=== PATIENT | male | born 1970 | race Caucasian/White ===

== ENCOUNTER 2021-04-15 11:26 | Emergency (ER) | payer MEDICAID ==
[2021-04-15 11:49] VITALS: BP 149/90
--- NOTE | 2021-04-15 12:10 | ED Physician Documentation ---
History of Present Illness - Stated complaint Stated Complaint: HEAD PX/NAUSEA/FATIGUE - Chief complaint Chief Complaint: General - Additonal information Additional information: 50-year-old male presents emergency department with concerns that he may have COVID-19. He received his first immunization on March 29. He travels extensively for work he was in [place] last week. When he returned a few days ago he learned that his has been sick with upper respiratory symptoms for the better part of a week. Local clinics and pharmacies are out of rapid test therefore he presents to the emergency department. Subjective fevers and chills. Some headache. Vomiting and diarrhea x1 mild congestion and cough. Denies chest pain labored breathing or shortness of air. Non-smoker. Review of Systems Constitutional: reports: Myalgias, Fatigue. denies: Fever Eyes: reports: Reviewed and negative Ears: reports: Reviewed and negative Nose: reports: Rhinorrhea / runny nose, Congestion Throat: reports: Reviewed and negative Cardiac: reports: Reviewed and negative Respiratory: reports: Cough. denies: Dyspnea GI: reports: Vomiting, Diarrhea : reports: Reviewed and negative Skin: reports: Reviewed and negative Musculoskeletal: reports: Reviewed and negative Neurologic: reports: Reviewed and negative Psychiatric: reports: Reviewed and negative PD PAST MEDICAL HISTORY - Past Surgical History Past Surgical History: No - Present Medications Home Medications: Ambulatory Orders Medication Instructions Recorded Confirmed Hydrocodone/Acetaminophen 1 - 2 each PO Q6H PRN #15 tablet 10/31/14 [Hydrocodon-Acetaminophen 5-325] Ofloxacin 0.3% Ophth Drops 1 drops RIGHTEYE QID 7 Days btl 10/31/14 [Ocuflox 0.3% Ophth Drops] - Allergies Allergies/Adverse Reactions: Allergies Allergy/AdvReac Type Severity Reaction Status Date / Time No Known Drug Allergies Allergy Verified 04/15/21 11:49 - Social History Does the pt smoke?: No Smoking Status: Former smoker Does the pt drink ETOH?: Yes Does the pt have substance abuse?: No - Immunizations Immunizations are current?: Yes Immunizations: TDAP current <10years - POLST Patient has POLST: No PD ED PE EXPANDED - General General: Alert, No acute distress - Neck Neck: Supple w/out meningeal sx. No: Adenopathy - Cardiac Cardiac: Regular Rate, Radial strong equal, Pedal strong equal. No: Murmur Present - Respiratory Respiratory: Clear to ausultation lily. No: Distress, Labored - Abdomen Abdomen: Normal Bowel sounds. No: Tender to palpation - Neuro Neuro: Alert and Oriented X 3, CNII-XII intact Results - Vitals Vitals: Vital Signs - 24 hr 04/15/21 11:46 Temperature 36.4 C L Heart Rate 64 Respiratory 16 Rate Blood Pressure 149/90 H O2 Saturation 97 Oxygen O2 Source Room air PD MEDICAL DECISION MAKING - ED course Complexity details: d/w patient ED course: 50-year-old male presents with 3 to 4 days of URI symptoms including cough, mild congestion headache and myalgias. He has received only 1 dose of COVID-19 vaccine in late March. Travels extensively for work. His has been sick at home for the last week with URI symptoms. COVID-19 screening test is pending. This gentleman otherwise looks and appears clinically well with a benign cardiopulmonary exam. Emergent return precautions discussed. Departure - Departure Disposition: 01 Home, Self Care Clinical Impression: Encounter for screening for COVID-19 Upper respiratory infection Qualifiers: URI type: unspecified URI Qualified Code(s): J06.9 - Acute upper respiratory infection, unspecified Condition: Stable Record reviewed to determine appropriate education?: Yes Comments: You have a Covid test pending. You need to self quarantine until the result is done and negative. Do not leave your house. Do not get near anybody. The results should be done in 48 to 72 hours. We will call with a positive result, the fastest way to get a negative result for confirmation though is to go to the hospital website at [email or web address], click on the my [employer] tab and sign up for the patient portal. If any friends or family get sick and would like to have a Covid test done, but do not have signs or symptoms that would necessitate being hospitalized, we encourage testing through our coronavirus swabbing station, call [phone] to schedule an appointment.
== END 2021-04-15 12:20 | disposition home or self-care (01) ==
LOC: ED 11:26
DX: J06.9 Acute upper respiratory infection, unspecified (principal); Z20.822 Contact with and (suspected) exposure to COVID-19; Z87.891 Personal history of nicotine dependence
CPT/HCPCS: 99283